=== PATIENT | male | born 1985 | race Caucasian/White ===

== ENCOUNTER 2017-08-22 00:27 | Emergency (ER) | payer OTHER ==
[~2017-08-22] VITALS: Wt 63.5 kg
== END 2017-08-22 02:01 ==
LOC: M.ERS 00:27
DX: Z02.89 Encounter for other administrative examinations (principal)

== ENCOUNTER 2019-05-19 17:27 | Emergency (ER) | payer OTHER ==
[~2019-05-19] VITALS: Ht 172.7 cm; Wt 65.8 kg
[2019-05-19 18:49] VITALS: BP 118/72
== END 2019-05-19 18:50 | disposition home or self-care (01) ==
LOC: M.ERS 17:27
DX: H61.23 Impacted cerumen, bilateral (principal); F17.210 Nicotine dependence, cigarettes, uncomplicated

== ENCOUNTER 2020-02-13 19:04 | Emergency (ER) | payer OTHER ==
[~2020-02-13] VITALS: Ht 172.7 cm; Wt 61.2 kg
[2020-02-13 19:54] VITALS: BP 125/70
[2020-02-13 19:58] LABS: URINE BILIRUBIN NEGATIVE (Negative); URINE BLOOD NEGATIVE (Negative); URINE CLARITY CLEAR; URINE COLOR YELLOW; URINE GLUCOSE-RANDOM NEGATIVE (Negative); URINE KETONES NEGATIVE (Negative); URINE LEUKOCYTES-REFLEX 1+ (Negative); URINE NITRITE-REFLEX NEGATIVE (Negative); URINE PROTEIN NEGATIVE (Negative); URINE SPECIFIC GRAVITY 1.025 (1.005-1.030); URINE UROBILINOGEN 0.2 E.U./dl (0.2-1.0)
[2020-02-13 20:06] LABS: BACTERIA-REFLEX 1-9 Few /HPF (None Seen); CASTS None Seen /LPF (None Seen); CRYSTALS None Seen /LPF (None Seen); SQUAMOUS NONE SEEN /LPF (0-3); URINE RBC 0-2 Rare /HPF (0-2); URINE WBC-REFLEX 6-15 Few /HPF (0-5)
== END 2020-02-13 19:55 | disposition home or self-care (01) ==
LOC: M.ERS 19:04
PROVIDERS: Emergency Medicine Emergency Medical Services
DX: N34.2 Other urethritis (principal); Z20.2 Contact with and (suspected) exposure to infections with a predominantly sexual mode of transmission

== ENCOUNTER 2020-03-29 09:57 | Emergency (ER) | payer OTHER ==
[~2020-03-29] VITALS: Ht 175.3 cm; Wt 63.5 kg
[2020-03-29] MEDS ORDERED: AZITHROMYCIN 2250 MG PO (10:20)
[2020-03-29] MEDS ORDERED: SUPRAX400 M1 PO (10:20)
[2020-03-29] MEDS ORDERED: FLAGYL500 M1 PO (10:20)
[2020-03-29 10:26] VITALS: BP 146/79
== END 2020-03-29 10:26 | disposition home or self-care (01) ==
LOC: M.ERS 09:57
DX: R36.9 Urethral discharge, unspecified (principal); Z20.2 Contact with and (suspected) exposure to infections with a predominantly sexual mode of transmission

== ENCOUNTER 2020-04-04 11:58 | Emergency (ER) | payer OTHER ==
[~2020-04-04] VITALS: Ht 172.7 cm; Wt 65.8 kg
[~2020-04-04 11:58] MED LIST: AZITHROMYCIN 2250 MG PO; FLAGYL500 M1 PO; SUPRAX400 M1 PO
[2020-04-04 13:05] LABS: URINE BILIRUBIN NEGATIVE (Negative); URINE BLOOD NEGATIVE (Negative); URINE CLARITY CLEAR; URINE COLOR YELLOW; URINE GLUCOSE-RANDOM NEGATIVE (Negative); URINE KETONES NEGATIVE (Negative); URINE LEUKOCYTES-REFLEX NEGATIVE (Negative); URINE NITRITE-REFLEX NEGATIVE (Negative); URINE PROTEIN NEGATIVE (Negative); URINE SPECIFIC GRAVITY 1.015 (1.005-1.030); URINE UROBILINOGEN 0.2 E.U./dl (0.2-1.0)
[2020-04-04] MEDS ORDERED: CIPRO500 MG PO (13:05)
[2020-04-04 13:12] VITALS: BP 119/82
== END 2020-04-04 13:12 | disposition home or self-care (01) ==
LOC: M.ERS 11:58
PROVIDERS: Nurse Practitioner Family
DX: R36.9 Urethral discharge, unspecified (principal); A74.9 Chlamydial infection, unspecified

== ENCOUNTER 2020-04-04 17:13 | Emergency (ER) | payer OTHER ==
[~2020-04-04] VITALS: Ht 172.7 cm; Wt 65.8 kg
[~2020-04-04 17:13] MED LIST changes: +CIPRO500 MG PO
[2020-04-04 18:00] VITALS: BP 115/79
== END 2020-04-04 18:00 | disposition home or self-care (01) ==
LOC: M.ERS 17:13
DX: A56.01 Chlamydial cystitis and urethritis (principal)

== ENCOUNTER 2020-09-04 01:24 | Emergency (ER) | payer OTHER ==
[~2020-09-04] VITALS: Ht 172.7 cm; Wt 61.2 kg
[2020-09-04] MEDS ORDERED: BACTRIM DS TAB1 EAC1 PO (02:28)
[2020-09-04] MEDS ORDERED: NAPROSYN500 MG PO (02:28)
[2020-09-04 02:36] VITALS: BP 122/62
== END 2020-09-04 02:36 | disposition home or self-care (01) ==
LOC: M.ERS 01:24
DX: L02.511 Cutaneous abscess of right hand (principal); F17.210 Nicotine dependence, cigarettes, uncomplicated

== ENCOUNTER 2020-11-01 19:55 | Emergency (ER) | payer OTHER ==
[~2020-11-01] VITALS: Ht 175.3 cm; Wt 63.5 kg
[~2020-11-01 19:55] MED LIST changes: +BACTRIM DS TAB1 EAC1 PO; +NAPROSYN500 MG PO
[2020-11-01 20:55] LABS: URINE BLOOD 3+ (Negative); URINE CLARITY CLOUDY; URINE COLOR YELLOW; URINE GLUCOSE-RANDOM NEGATIVE (Negative); URINE KETONES TRACE (Negative); URINE NITRITE-REFLEX NEGATIVE (Negative); URINE PROTEIN 2+ (Negative); URINE SPECIFIC GRAVITY >= 1.030 (1.005-1.030); URINE UROBILINOGEN 0.2 E.U./dl (0.2-1.0)
[2020-11-01 20:59] LABS: ICTOTEST (BILI CONFIRMATORY) Negative (Negative); URINE BILIRUBIN 1+ (Negative); URINE LEUKOCYTES-REFLEX 2+ (Negative)
[2020-11-01 21:09] LABS: MUCUS 0-3 Light strn/LPF (None Seen)
[2020-11-01 21:10] LABS: SQUAMOUS 0-3 Few /LPF (0-3); URINE WBC-REFLEX >25 Many /HPF (0-5); WBC CLUMPS Few (None Seen)
[2020-11-01 21:11] LABS: CRYSTALS None Seen /LPF (None Seen); HYALINE CASTS 0-3 Few /LPF (None Seen)
[2020-11-01 21:11] LABS: AMP/METHAMP POSITIVE (Negative); BARBITURATES Negative (Negative); BENZODIAZEPINES Negative (Negative); COCAINE Negative (Negative); METHADONE Negative (Negative); OPIATES Negative (Negative); PCP Negative (Negative); THC POSITIVE (Negative)
[2020-11-01 21:12] LABS: BACTERIA-REFLEX None Seen /HPF (None Seen)
[2020-11-01] MEDS ORDERED: BACTRIM DS TAB1 EACH PO (22:23)
[2020-11-01 22:32] VITALS: BP 107/59
== END 2020-11-01 22:33 | disposition home or self-care (01) ==
LOC: M.ERS 19:55
PROVIDERS: Personal Emergency Response Attendant
DX: N39.0 Urinary tract infection, site not specified (principal); N50.812 Left testicular pain; F17.210 Nicotine dependence, cigarettes, uncomplicated

== ENCOUNTER 2021-03-03 11:23 | Emergency (ER) | payer OTHER ==
[~2021-03-03 11:23] MED LIST changes: +BACTRIM DS TAB1 EACH PO
== END 2021-03-03 15:19 ==
LOC: M.ERS 11:23
DX: Z02.89 Encounter for other administrative examinations (principal)